=== PATIENT | male | born 1950 | race Caucasian/White ===

== ENCOUNTER 2020-10-19 15:25 | Outpatient (CLI) | payer MEDICARE, SELFPAY | END 2020-10-19 15:26 | disposition home or self-care (01) | LOC: ANHCOVIDVC 15:25 | PROVIDERS: PCP Family Medicine | DX: Z23 Encounter for immunization (principal) | CPT/HCPCS: 0001A; 91300 ==

== ENCOUNTER 2020-11-09 15:19 | Outpatient (CLI) | payer MEDICARE, SELFPAY | END 2020-11-09 15:20 | disposition home or self-care (01) | LOC: ANHCOVIDVC 15:19 | PROVIDERS: PCP Family Medicine | DX: Z23 Encounter for immunization (principal) | CPT/HCPCS: 0002A; 91300 ==

== ENCOUNTER 2023-03-28 07:58 | Outpatient (CLI) | payer MEDICARE, SELFPAY ==
[2023-03-28 14:04] LABS: Basophils Percent Auto 0.4 % (0.2-1.2); Eosinophils Absolute Auto 0.1 K/mm3 (0-0.3); Eosinophils Percent Auto 1.7 % (0-4.4); Hematocrit 46.1 % (42.0-52.0); Hemoglobin 14.8 g/dL (14.0-18.0); Immature Granulocyte Absolute 0.02 K/mm3 (0.00-0.031); Immature Granulocyte Percent A 0.3 % (0-0.5); Lymphocytes Absolute Auto 1.87 K/mm3 (0.9-3.2); Lymphocytes Percent Auto 26.6 % (18.3-44.2); Mean Corpuscular HGB Conc 32.1 g/dl (32-36); Mean Corpuscular Hemoglobin 30.9 pg (26-34); Mean Corpuscular Volume 96.2 fl (80-100); Monocytes Absolute Auto 0.5 K/mm3 (0.1-0.6); Monocytes Percent Auto 7.5 % (2.6-8.5); Neutrophils Absolute Auto 4.5 K/mm3 (1.3-6.7); Neutrophils Percent Auto 63.5 % (45.5-73.1); Platelet Count Result 284 k/mm3 (150-375); Red Blood Count 4.79 M/mm3 (4.6-6.20); Red Cell Distribution Width 13.5 % (11.5-14.5)
[2023-03-28 14:18] LABS: Alanine Aminotransferase 36 U/L (6-50); Albumin Level 4.1 g/dL (3.5-5.1); Alkaline Phosphatase 64 U/L (38-126); Anion Gap 6 mmol/L (8-16); Aspartate Amino Transferase 71 U/L (17-59); Bilirubin,Total 0.6 mg/dL (0.2-1.3); Blood Urea Nitrogen 19 mg/dL (9-20); Calcium 8.9 mg/dL (8.4-10.2); Carbon Dioxide 28 mmol/L (22-30); Chloride 105 mmol/L (98-107); Cholesterol 157 mg/dL (0-200); Estimated Glomerular Filt Rate > 60; Glucose 72 mg/dL (65-110); HDL Direct 40 mg/dL; Potassium 4.3 mmol/L (3.4-5.0); Sodium 139 mmol/L (137-145); Triglycerides 105 mg/dL (<150)
[2023-03-28 14:29] LABS: LDL Cholesterol Direct 77 mg/dL
[2023-03-28 14:39] LABS: Creatinine Urine 156.2 mg/dL
[2023-03-28 14:43] LABS: MALB Creatinine Ratio 18.5 mg/g (0-30); Microalbumin Urine Random 28.9 mg/L (0-16.7)
[2023-03-28 14:47] LABS: Prostate Specific Antigen 1.4 ng/mL (< OR = 4.0)
[2023-03-28 14:52] LABS: Hemoglobin A1C 6.7 % (<5.7)
== END 2023-03-28 07:59 | disposition home or self-care (01) ==
PROVIDERS: PCP Family Medicine; Visit Provider Physician Assistant
DX: E13.9 Other specified diabetes mellitus without complications (principal); Z79.4 Long term (current) use of insulin; E78.00 Pure hypercholesterolemia, unspecified; Z79.899 Other long term (current) drug therapy; Z12.5 Encounter for screening for malignant neoplasm of prostate
CPT/HCPCS: 36415; 80053; 80061; 82043; 83036; 84153; 84443; 85025; G0103

== ENCOUNTER → 2023-04-19 07:47 | Outpatient (CLI) | payer MEDICARE, SELFPAY ==
--- NOTE | ~2023-04-19 | US_ITS ---
Limited Abdominal Sonogram: Real-time sonographic imaging of the right upper quadrant was performed. Clinical History: Abnormal liver enzyme levels Findings: The liver appears echogenic, with no evidence of mass lesion or bile duct dilatation. Main portal vein demonstrates normal direction of flow. The gallbladder is well distended, and appears no rmal with no evidence of gallstone or wall thickening. The common bile duct measures 5 mm. The visua lized pancreas, aorta, and IVC are unremarkable. Impression: Diffuse fatty infiltration of the liver. Reviewed, dictated and finalized at location M. Impression: Diffuse fatty infiltration of the liver.
== END ==
PROVIDERS: PCP Family Medicine; Visit Provider Family Medicine
DX: R74.01 Elevation of levels of liver transaminase levels (principal); K76.0 Fatty (change of) liver, not elsewhere classified
CPT/HCPCS: 76705

== ENCOUNTER 2023-06-06 09:54 | Outpatient (CLI) | payer MEDICARE, SELFPAY ==
[2023-06-06 18:38] LABS: Alanine Aminotransferase 35 U/L (6-50); Alkaline Phosphatase 60 U/L (38-126); Aspartate Amino Transferase 32 U/L (17-59); Bilirubin,Total 0.6 mg/dL (0.2-1.3); Cholesterol 167 mg/dL (0-200); HDL Direct 40 mg/dL; Triglycerides 133 mg/dL (<150)
[2023-06-06 18:49] LABS: LDL Cholesterol Direct 93 mg/dL
[2023-06-06 19:36] LABS: Hepatitis B Surface Antigen Negative (Negative)
[2023-06-06 19:41] LABS: HAV RESULT Negative (Negative); Hepatitis B Core IgM Result Negative (Negative)
[2023-06-06 19:53] LABS: Hepatitis C Virus Antibody Negative (Negative)
== END 2023-06-06 09:55 | disposition home or self-care (01) ==
PROVIDERS: PCP Family Medicine; Visit Provider Family Medicine
DX: R74.01 Elevation of levels of liver transaminase levels (principal)
CPT/HCPCS: 36415; 80061; 80074; 80076

== ENCOUNTER 2023-12-29 08:03 | Outpatient (CLI) | payer MEDICARE, SELFPAY ==
[2023-12-29 12:35] LABS: Alanine Aminotransferase 41 U/L (6-50); Albumin Level 4.1 g/dL (3.5-5.1); Alkaline Phosphatase 66 U/L (38-126); Anion Gap 4 mmol/L (4-12); Aspartate Amino Transferase 73 U/L (17-59); Bilirubin,Total 0.4 mg/dL (0.2-1.3); Blood Urea Nitrogen 23 mg/dL (9-20); Calcium 9.2 mg/dL (8.4-10.2); Carbon Dioxide 26 mmol/L (22-30); Chloride 108 mmol/L (98-107); Estimated Glomerular Filt Rate > 60; Glucose 63 mg/dL (65-110); Potassium 4.6 mmol/L (3.4-5.0); Sodium 138 mmol/L (137-145)
== END 2023-12-29 08:04 | disposition home or self-care (01) ==
PROVIDERS: PCP Family Medicine; Visit Provider Family Medicine
DX: E13.9 Other specified diabetes mellitus without complications (principal)
CPT/HCPCS: 36415; 80053; 83036

== ENCOUNTER 2024-01-22 10:52 | Outpatient (CLI) | payer MEDICARE, SELFPAY ==
[2024-01-22 13:15] LABS: Microalbumin Urine Random 25.7 mg/L (0-16.7)
[2024-01-22 13:22] LABS: Creatinine Urine 93.1 mg/dL; MALB Creatinine Ratio 27.6 mg/g (0-30)
== END 2024-01-22 10:53 | disposition home or self-care (01) ==
PROVIDERS: PCP Family Medicine; Visit Provider Nurse Practitioner Family
DX: E13.9 Other specified diabetes mellitus without complications (principal)
CPT/HCPCS: 82043

== ENCOUNTER 2024-02-28 05:51 | Day surgery (SDC) | payer MEDICARE, SELFPAY ==
[2024-01-24 06:13] VITALS: BMI 22.6
[2024-02-14 11:11] VITALS: BMI 25.6
--- NOTE | 2024-02-27 13:46 | WPDANESEPPF ---
Anes - Initial Pre Proc Eval Procedure: Operation Date: 02/28/24 07:30 Proposed Procedures p Screening Colonoscopy - Fracisco Soliz MD Date/Time: 02/27/24 13:46 Surgeon: Fracisco Soliz MD Pre Op Diagnosis: Screening for neoplasm of colon Patient Data Age: 74 Gender: M Height: 1.8 m Weight: 83.37 kg Allergies Allergy/AdvReac Type Severity Reaction Status Date / Time No Known Allergies Allergy Verified 02/28/24 06:18 Home Medications Medication Instructions Recorded Confirmed Type latanoprost 0.005 % eye drops 1 drp EACH EYE DAILY 03/10/22 02/28/24 History blood sugar diagnostic #100 ea 04/18/23 02/14/24 Rx pen needle, diabetic 32 gauge x #100 ea 06/06/23 02/14/24 Rx / (NovoFine Plus) metformin 500 mg tablet,extended See Rx Instructions .Route 09/27/23 02/28/24 Rx release 24 hr .COMPLEX #270 tabs atorvastatin 20 mg tablet 20 mg PO DAILY #90 tabs 12/01/23 02/28/24 Rx lancets 30 gauge (OneTouch Delica #200 ea 12/11/23 02/14/24 Rx Plus Lancet) trazodone 100 mg tablet See Rx Instructions .Route 12/11/23 02/28/24 Rx .COMPLEX #45 tabs insulin degludec 100 unit/mL (3 30 unit (0.3 mL) subcut DAILY #15 01/29/24 02/28/24 Rx mL) subcutaneous pen (Tresiba mL FlexTouch U-100 insulin) lisinopril 10 mg tablet See Rx Instructions .Route 02/09/24 02/28/24 Rx .COMPLEX #90 tabs Patient hx anesthesia problems: none Family hx anesthesia problems: none Results Review: All pre-operative results and documents have been reviewed as part of the pre-operative evaluation. 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 Pure hypercholesterolemia, unspecified Family History Family History Sibling Hypertension Father Family history of liver disease, Onset Age: 45 Mother Hypertension Other Diabetes mellitus Family history of elevated blood lipids Social History Social History Smoking status: Never smoker Alcohol intake: current Drinks per week: 1 Substance use: never Substance use type: does not use Lack of Transportation: No Lack of Food: Never True Current Housing: I Have Housing Concerned About Future Housing: No Difficulty Paying Gas/Electric Bills: No Difficulty Paying for Meds: No Currently Unemployed: No Education: Master's Degree or Higher Difficulty w/ Childcare or Family Care: No Living arrangements: with family Anes - Evjordy Final PreProcedure Day of Procedure 02/27/24 13:46 Patient weight: overweight Heart: regular rate and rhythm Lungs: clear to auscultation Airway: Mallampati scale class II Neurological: alert and oriented Last oral intake: >/= 8 hours ASA classification: III Emergent: no Anesthetic plan: proceed Anesthesia type and monitoring: general GIVS and standard monitoring Results Review: All pre-operative results and documents have been reviewed as part of the pre-operative evaluation. Informed Consent: The patient's anesthetic plan and its attendant risks and benefits were discussed with the patient/family/POA. Questions were solicited and answers provided to the satisfaction of the patient/family/POA.
[2024-02-28 06:22] VITALS: BP 154/93; PULSE 76; RESP 20; TEMP 36.9; BMI 25.0
[2024-02-28] MEDS: LACTATED RINGERS 1,000 ML 150 ML IV CONT (06:38)
[2024-02-28 06:39] LABS: Glucose Point of Care 97 mg/dl (65-105)
--- NOTE | 2024-02-28 07:09 | PM.HPGS ---
History of Present Illness History of Present Illness Consent: Risks, benefits, and alternatives have been discussed and questions answered. Patient agrees to proceed with procedure. Chief complaint: Screening for neoplasm of colon Narrative: Waldo Ludwig is a 74 year old male presents for screening colonoscopy. Patient current weight appetite and bowel movements are normal. Patient did has had no bleeding. Family history is noncontributory. 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 Pure hypercholesterolemia, unspecified Family History Family History Sibling Hypertension Father Family history of liver disease, Onset Age: 45 Mother Hypertension Other Diabetes mellitus Family history of elevated blood lipids Social History Social History Smoking status: Never smoker Alcohol intake: current Drinks per week: 1 Substance use: never Substance use type: does not use Lack of Transportation: No Lack of Food: Never True Current Housing: I Have Housing Concerned About Future Housing: No Difficulty Paying Gas/Electric Bills: No Difficulty Paying for Meds: No Currently Unemployed: No Education: Master's Degree or Higher Difficulty w/ Childcare or Family Care: No Living arrangements: with family Meds Home Medications and Allergies Home Medications Medication Instructions Recorded Confirmed Type latanoprost 0.005 % eye drops 1 drp EACH EYE DAILY 03/10/22 02/28/24 History blood sugar diagnostic #100 ea 04/18/23 02/14/24 Rx pen needle, diabetic 32 gauge x #100 ea 06/06/23 02/14/24 Rx 1/6 (NovoFine Plus) metformin 500 mg tablet,extended See Rx Instructions .Route 09/27/23 02/28/24 Rx release 24 hr .COMPLEX #270 tabs atorvastatin 20 mg tablet 20 mg PO DAILY #90 tabs 12/01/23 02/28/24 Rx lancets 30 gauge (OneTouch Delica #200 ea 12/11/23 02/14/24 Rx Plus Lancet) trazodone 100 mg tablet See Rx Instructions .Route 12/11/23 02/28/24 Rx .COMPLEX #45 tabs insulin degludec 100 unit/mL (3 30 unit (0.3 mL) subcut DAILY #15 01/29/24 02/28/24 Rx mL) subcutaneous pen (Tresiba mL FlexTouch U-100 insulin) lisinopril 10 mg tablet See Rx Instructions .Route 02/09/24 02/28/24 Rx .COMPLEX #90 tabs Allergies Allergy/AdvReac Type Severity Reaction Status Date / Time No Known Allergies Allergy Verified 02/28/24 06:18 Vital Signs Vital Signs - 24 hr 02/28/24 06:22 Temperature 98.4 F Pulse Rate 76 Respiratory Rate 20 Blood Pressure 154/93 H Exam Narrative: Physical exam reveals patient to be alert. Vital signs stable. HEENT exam is unremarkable. Patient is anicteric. Lungs are clear to auscultation and to percussion. Heart is without murmur or extra sounds. Abdomen bowel sounds are present soft nontender with no organomegaly. Digital external rectal exam is normal. Assessment and Plan Assessment and plan (1) Screen for colon cancer: Code(s): Z12.11 - Encounter for screening for malignant neoplasm of colon Status: Acute Assessment and Plan: Patient presents today for screening colonoscopy. He appears to be at average risk for colon polyps.
[2024-02-28 07:44] VITALS: BP 114/73; PULSE 63; RESP 16; O2SAT 100
[2024-02-28 07:54] VITALS: BP 127/81; PULSE 60; RESP 17; O2SAT 100
[2024-02-28 08:04] VITALS: BP 132/82; PULSE 61; RESP 16; O2SAT 100
--- NOTE | 2024-02-28 15:04 | WPDANESPN ---
Anes - Prog Note Post-Op Date/Time: 02/28/24 15:04 Cardiovascular status: normal Respiratory status: normal Airway patency: baseline Mental status: baseline Post-Op hydration status: normal Vital Signs: Last Vital Signs Temp 36.9 C 02/28/24 06:22 Pulse 61 02/28/24 08:04 Resp 16 02/28/24 08:04 BP 132/82 02/28/24 08:04 Pulse Ox 100 02/28/24 08:04 O2 Del Method Room Air 02/28/24 08:04 Pain Score (VAS): 0 I/O: Intake & Output 02/27/24 02/28/24 02/28/24 23:59 07:59 15:59 Intake Total 500 Balance 500 02/28/24 06:35 POC Capillary Glucose 97 Post-procedural complaints: none Patient Feedback: Patient satisfied with anesthetic care. Other Findings: Patient vital signs back to baseline. Patient denies nausea and vomiting. Patient's pain under control. Patient OK for discharge.
== END 2024-02-28 08:10 | disposition home or self-care (01) ==
PROVIDERS: PCP Family Medicine; Visit Provider Internal Medicine Gastroenterology
PROC: 0DJD8ZZ Inspection of Lower Intestinal Tract, Via Natural or Artificial Opening Endoscopic (ICD-10-PCS; CPT 45378; principal; 2024-02-28 07:30)
DX: Z12.11 Encounter for screening for malignant neoplasm of colon (principal)
CPT/HCPCS: 45378

== ENCOUNTER 2024-06-03 12:59 | Outpatient (NON) | payer MEDICARE, SELFPAY | END 2024-06-03 13:00 | disposition home or self-care (01) | LOC: ANHGOSHLAB 13:00 | PROVIDERS: PCP Family Medicine; Visit Provider Student in an Organized Health Care Education/Training Program | DX: N39.0 Urinary tract infection, site not specified (principal) | CPT/HCPCS: 87086 ==

== ENCOUNTER 2024-06-11 14:05 | Outpatient (CLI) | payer MEDICARE, SELFPAY ==
[2024-06-11 19:13] LABS: Alanine Aminotransferase 26 U/L (6-50); Alkaline Phosphatase 94 U/L (38-126); Anion Gap 9 mmol/L (4-12); Aspartate Amino Transferase 32 U/L (17-59); Bilirubin,Total 0.3 mg/dL (0.2-1.3); Blood Urea Nitrogen 24 mg/dL (9-20); Carbon Dioxide 25 mmol/L (22-30); Chloride 103 mmol/L (98-107); Cholesterol 152 mg/dL (0-200); Estimated Glomerular Filt Rate > 60; Glucose 280 mg/dL (65-110); HDL Direct 38 mg/dL; Potassium 4.3 mmol/L (3.4-5.0); Sodium 137 mmol/L (137-145); Triglycerides 199 mg/dL (<150)
[2024-06-11 19:24] LABS: LDL Cholesterol Direct 76 mg/dL
[2024-06-11 19:28] LABS: Hemoglobin A1C 7.1 % (<5.7)
[2024-06-11 19:40] LABS: Prostate Specific Antigen 10.7 ng/mL (< OR = 4.0)
== END 2024-06-11 14:06 | disposition home or self-care (01) ==
PROVIDERS: Student in an Organized Health Care Education/Training Program; PCP Family Medicine; Visit Provider Nurse Practitioner Family
DX: E11.21 Type 2 diabetes mellitus with diabetic nephropathy (principal); E78.00 Pure hypercholesterolemia, unspecified; I10 Essential (primary) hypertension; N40.1 Benign prostatic hyperplasia with lower urinary tract symptoms; R35.0 Frequency of micturition
CPT/HCPCS: 36415; 80053; 80061; 83036; 84153

== ENCOUNTER 2024-07-31 08:24 | Outpatient (CLI) | payer MEDICARE, SELFPAY ==
[2024-08-02 14:57] LABS: PSA, Free 0.7 ng/mL; PSA, Total 2.2 ng/mL (< OR = 4.0); Percent Free Prostate Spec Ag 32 % (calc) (>25)
== END 2024-07-31 08:25 | disposition home or self-care (01) ==
LOC: ANHGOSHLAB 08:25
PROVIDERS: PCP Family Medicine; Visit Provider Family Medicine
DX: N40.1 Benign prostatic hyperplasia with lower urinary tract symptoms (principal); R35.0 Frequency of micturition; R97.20 Elevated prostate specific antigen [PSA]
CPT/HCPCS: 36415; 84153; 84154

== ENCOUNTER 2025-02-09 08:14 | Emergency (ER) | payer MEDICARE, SELFPAY ==
[2025-02-09 08:25] VITALS: BP 133/82; PULSE 93; RESP 16; TEMP 36.6; O2SAT 99
--- NOTE | 2025-02-09 08:29 | ED_ITS ---
HPI - Psych General Chief Complaint: Anxiety Stated Complaint: Anxiety Patient presents to the [facility] with complaints of panic attack this morning. Patient reports he is moving to [place] to be near family and was talking with friends last night talking about the move, noted he has an appointment with movers today. Patient reports getting very anxious about the entire situation noted he is primarily an anxious person but normally just uses trazodone bedtime to sleep reports taking this this morning just tablet with rel ief of symptoms. Also noted taking 45 minute walk without relief of symptoms. Patient reports he does feel slightly better but afraid that symptoms are going to start again. Patient does report having similar symptoms to this many years ago and did take an as-needed medication but cannot remember what this was. Denies SI, HI. Related Data Home Medications ?Medication ?Instructions ?Recorded ?Confirmed ?Last Taken ?Type latanoprost 0.005 % eye drops 1 drp EACH EYE DAILY 03/10/22 08/15/24 02/27/24 History triamcinolone acetonide 0.1 % applic topical 02/09/25 Unknown History topical cream Allergies Allergy/AdvReac Type Severity Reaction Status Date / Time No Known Allergies Allergy Verified 02/09/25 08:44 Review of Systems Constitutional: Constitutional: Reports as per HPI, Denies chills, Denies fatigue, Denies fever(s) and Denies weakness Eyes: Eyes: Reports no additional eye complaints ENT: Reports system reviewed and no additional complaints, except as documented Cardiovascular: Cardiovascular: Reports as per HPI, Denies chest pain, Denies rapid heart rate, Denies radiating jaw, neck or arm pain and Denies slow heart rate Respiratory: Respiratory: Reports as per HPI, Denies chest congestion, Denies cough, Denies dyspnea and Denies wheezing Gastrointestinal: Gastrointestinal: Reports no additional gastrointestinal complaints Genitourinary: Genitourinary: Reports no additional male genitourinary complaints Musculoskeletal: Musculoskeletal: Reports no additional musculoskeletal complaints Integumentary/Breasts: Skin/Breast: Reports system reviewed and no additional complaints, except as docu Neurologic: Reports system reviewed and no additional complaints, except as documented Psychiatric: Psychiatric: Reports as per HPI, Reports anxiety, Denies depression, Denies homicidal ideation and Denies suicidal ideation Endocrine: Endocrine: Reports no additional endocrine complaints Hematologic/Lymphatic: Hematologic/Lymphatic: Reports no additional hematologic/lymphatic complaints Allergic/Immunologic: Allergic/Immunologic: Reports no additional allergic/immunologic complaints [facility] Past Medical History Medical History Diabetes type 2, controlled Fatty liver Hepatitis C antibody test negative (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 Essential (primary) hypertension Pure hypercholesterolemia, unspecified Family History Family History Sibling Hypertension Father Family history of liver disease, Onset Age: 45 Mother Hypertension Other Diabetes mellitus Family history of elevated blood lipids Social History Social History Smoking status: Never smoker Alcohol intake: current Drinks per week: 1 Substance use: never Substance use type: does not use Lack of Transportation: No Lack of Food: Never True Current Housing: I Have Housing Concerned About Future Housing: No Difficulty Paying Gas/Electric Bills: No Difficulty Paying for Meds: No Currently Unemployed: No Education: Master's Degree or Higher Difficulty w/ Childcare or Family Care: No Living arrangements: with family Exam Const: General: healthy appearing and no acute distress Nutritional Appearance: well nourished Orientation/consciousness: patient oriented x3 Limitations: no limitations Resp: Effort & Inspection: normal respiratory effort Auscultation: clear to auscultation bilaterally Cardio: Rate: regular rate Rhythm: regular rhythm Heart sounds: no murmurs Skin: General skin exam: normal color Rashes: no rashes Wounds: no w ounds Neuro: General: patient oriented x3 Speech: normal speech Gait exam (Neuro): Normal gait present Psych: Mental Status: mental status grossly normal Affect: normal affect Attitude: cooperative Course Course Level of Care: Express Care Visit Vital Signs Vital signs: Vital Signs Temperature 97.9 F 02/09/25 08:25 Pulse Rate 93 02/09/25 08:25 Respiratory Rate 16 02/09/25 08:25 Blood Pressure 133/82 02/09/25 08:25 Pulse Oximetry 99 02/09/25 08:25 Temperature 97.9 F 02/09/25 08:25 Pulse Rate 93 02/09/25 08:25 Respiratory Rate 16 02/09/25 08:25 Blood Pressure 133/82 02/09/25 08:25 Pulse Oximetry 99 02/09/25 08:25 MDM - Psych MDM Narrative Medical decision making narrative: Spoke about various medications. Trial as needed alprazolam patient already scheduled for follow-up in 8 days with primary care office Discharge instructions reviewed with patient, as well as provided in writing per nursing staff. The instructions also include specific and strict return/GO TO THE ER as well as f/u information. All questions have been answered, and the patient deny any further questions with discharge and discharge plan. Differential Diagnosis Differential diagnosis: Likely suicidal ideation, depression and acute anxiety Medical Records Attestation: I reviewed the patient's medical records. Discharge Plan Discharge Clinical Impression: Panic disorder Patient Disposition: Home Condition: Stable Instructions: Antibiotic Form, Panic Disorder (ED), Anxiety (ED) Patient Language: Palestinian Prescriptions: New alprazolam 0.25 mg tablet 0.25 mg PO TID PRN (Reason: anxiety) Qty: 30 0RF No Action triamcinolone acetonide 0.1 % cream TOPICAL latanoprost 0.005 % drops 1 drp EACH EYE DAILY (DME) lancets [OneTouch Delica Plus Lancet] 30 gauge misc See Rx Instructions .ROUTE .COMPLEX Qty: 200 3RF Dose Instruction: USE TO CHECK BLOOD SUGAR TWICE A DAY Rx Instructions: USE TO CHECK BLOOD SUGAR TWICE A DAY (DME) blood sugar diagnostic Strip See Rx Instructions .ROUTE .MEDSUPPLY Qty: 100 3RF Rx Instructions: use to test blood sugar 2 times daily (DME) pen needle, diabetic [BD Ultra-Fine Maribell Pen Needle] 32 gauge x 5/32 ne edle See Rx Instructions .Route Qty: 50 0RF Rx Instructions: for use with Tresiba Tresiba FlexTouch U-100 100 unit/mL (3 mL) insulin pen 30 unit SUB-Q DAILY Qty: 15 3RF metformin 500 mg tablet extended release 24 hr See Rx Instructions .ROUTE .COMPLEX Qty: 270 1RF Dose Instruction: TAKE 3 TABS BY MOUTH AT BEDTIME Rx Instructions: TAKE 3 TABS BY MOUTH AT BEDTIME atorvastatin 20 mg tablet See Rx Instructions .ROUTE .COMPLEX Qty: 90 1RF Dose Instruction: TAKE 1 TABLET BY MOUTH EVERY DAY Rx Instructions: TAKE 1 TABLET BY MOUTH EVERY DAY trazodone 100 mg tablet See Rx Instructions .ROUTE .COMPLEX Qty: 45 1RF Dose Instruction: TAKE HALF A TABLET BY MOUTH ONCE DAILY Rx Instructions: TAKE HALF A TABLET BY MOUTH ONCE DAILY tamsulosin 0.4 mg capsule See Rx Instructions .ROUTE .COMPLEX Qty: 90 1RF Dose Instruction: TAKE 1 CAPSULE BY MOUTH AT BEDTIME Rx Instructions: TAKE 1 CAPSULE BY MOUTH AT BEDTIME lisinopril 10 mg tablet See Rx Instructions .ROUTE .COMPLEX Qty: 90 1RF Dose Instruction: TAKE 1 TABLET BY MOUTH EVERY DAY Rx Instructions: TAKE 1 TABLET BY MOUTH EVERY DAY Follow-up/Referrals: Sylvain Eugene MD [Primary Care Provider] - Time of Disposition: 09:01
== END 2025-02-09 09:03 | disposition home or self-care (01) ==
PROVIDERS: Emergency Provider Nurse Practitioner Family; PCP Family Medicine
DX: F41.0 Panic disorder [episodic paroxysmal anxiety] (principal); E11.9 Type 2 diabetes mellitus without complications; I10 Essential (primary) hypertension; Z79.4 Long term (current) use of insulin
CPT/HCPCS: 99213; G0463

== ENCOUNTER 2025-02-12 07:59 | Outpatient (CLI) | payer MEDICARE, SELFPAY ==
[2025-02-12 19:16] LABS: Alanine Aminotransferase 42 U/L (6-50); Albumin Level 3.9 g/dL (3.5-5.1); Alkaline Phosphatase 74 U/L (38-126); Anion Gap 10 mmol/L (4-12); Aspartate Amino Transferase 42 U/L (17-59); Bilirubin,Total 0.6 mg/dL (0.2-1.3); Blood Urea Nitrogen 22 mg/dL (9-20); Calcium 9.4 mg/dL (8.4-10.2); Carbon Dioxide 24 mmol/L (22-30); Chloride 107 mmol/L (98-107); Estimated Glomerular Filt Rate > 60; Glucose 69 mg/dL (65-110); Potassium 3.9 mmol/L (3.4-5.0); Sodium 141 mmol/L (137-145); Total Protein 7.1 g/dL (6.3-8.2)
[2025-02-12 21:06] LABS: Hemoglobin A1C 7.1 % (<5.7)
== END 2025-02-12 08:00 | disposition home or self-care (01) ==
PROVIDERS: PCP Family Medicine; Visit Provider Family Medicine
DX: E13.9 Other specified diabetes mellitus without complications (principal); I10 Essential (primary) hypertension
CPT/HCPCS: 36415; 80053; 83036

== ENCOUNTER 2025-02-17 08:29 | Outpatient (CLI) | payer MEDICARE, SELFPAY ==
[2025-02-17 13:07] LABS: Creatinine Urine 88.1 mg/dL
[2025-02-17 13:14] LABS: MALB Creatinine Ratio 41.2 mg/g (0-30); Microalbumin Urine Random 36.3 mg/L (0-16.7)
== END 2025-02-17 08:30 | disposition home or self-care (01) ==
LOC: ANHGOSHLAB 08:30
PROVIDERS: PCP Family Medicine; Visit Provider Nurse Practitioner Family
DX: E13.9 Other specified diabetes mellitus without complications (principal)
CPT/HCPCS: 82043